=== PATIENT | male | born 1950 | race Two or more races ===

== ENCOUNTER 2018-11-09 11:52 | Outpatient (CLI) | payer OTHER | END 2018-11-09 13:23 | disposition home or self-care (01) | LOC: RAD 501 11:52 | DX: M25.551 Pain in right hip (principal) ==

== ENCOUNTER 2019-04-07 06:41 | Outpatient (CLI) | payer OTHER | END 2019-04-07 06:52 | disposition home or self-care (01) | LOC: LAB 06:41 | DX: D64.89 Other specified anemias (principal); E88.89 Other specified metabolic disorders; D68.8 Other specified coagulation defects; N39.0 Urinary tract infection, site not specified; Z22.322 Carrier or suspected carrier of Methicillin resistant Staphylococcus aureus; Z76.89 Persons encountering health services in other specified circumstances; I49.8 Other specified cardiac arrhythmias ==

== ENCOUNTER 2019-04-18 05:54 | Day surgery (SDC) | payer OTHER ==
[~2019-04-18 05:54] MED LIST: ATROVASTATIN PO; ECOTRIN81 MG PO; FORTAMET500 MG PO; METROPOLOL PO; OSTERA TABLET1 EACH PO; ZESTRIL40 M1 PO
== END 2019-04-18 15:28 | disposition home or self-care (01) ==
LOC: CIR.AMB 05:54
DX: M77.11 Lateral epicondylitis, right elbow (principal)

== ENCOUNTER 2021-07-26 07:17 | Outpatient (CLI) | payer OTHER | END 2021-07-26 07:22 | disposition home or self-care (01) | LOC: LAB 07:17 | PROVIDERS: ATTEND Orthopaedic Surgery | DX: E56.1 Deficiency of vitamin K (principal); M85.88 Other specified disorders of bone density and structure, other site; E55.9 Vitamin D deficiency, unspecified ==

== ENCOUNTER 2021-09-08 08:51 | Outpatient (CLI) | payer OTHER ==
[2021-09-08] MEDS ORDERED: NORVASC10 MG PO (13:31)
[2021-09-08] MEDS ORDERED: JANUVIA50 MG PO (13:31)
[2021-09-08] MEDS ORDERED: DRAMAMINE LESS25 MG (13:32)
== END 2021-09-08 10:17 | disposition home or self-care (01) ==
LOC: LAB 08:51
PROVIDERS: ATTEND Orthopaedic Surgery
DX: D64.9 Anemia, unspecified (principal); E88.9 Metabolic disorder, unspecified; D68.8 Other specified coagulation defects; N39.0 Urinary tract infection, site not specified; A49.02 Methicillin resistant Staphylococcus aureus infection, unspecified site; E11.9 Type 2 diabetes mellitus without complications; Z76.89 Persons encountering health services in other specified circumstances; I10 Essential (primary) hypertension; I49.9 Cardiac arrhythmia, unspecified

== ENCOUNTER 2021-09-19 05:25 | Day surgery (SDC) | payer OTHER ==
[~2021-09-19 05:25] MED LIST changes: +DRAMAMINE LESS25 MG; +JANUVIA50 MG PO; +NORVASC10 MG PO
== END 2021-09-19 16:10 | disposition home or self-care (01) ==
LOC: CIR.AMB 05:25
PROVIDERS: ATTEND Orthopaedic Surgery
DX: M75.111 Incomplete rotator cuff tear or rupture of right shoulder, not specified as traumatic (principal); M19.011 Primary osteoarthritis, right shoulder; M75.21 Bicipital tendinitis, right shoulder; M75.41 Impingement syndrome of right shoulder; I25.10 Atherosclerotic heart disease of native coronary artery without angina pectoris; I10 Essential (primary) hypertension; Z95.1 Presence of aortocoronary bypass graft; R42 Dizziness and giddiness; L40.8 Other psoriasis; Z20.822 Contact with and (suspected) exposure to COVID-19